=== PATIENT | male | born 1935 | race Caucasian/White ===

== ENCOUNTER 2017-03-12 22:23 | Inpatient (IN) | payer OTHER ==
[2017-03-12 22:30] VITALS: BMI 21.5
--- NOTE | 2017-03-12 22:35 | PDOC ---
History of Present Illness - General Chief Complaint: Injury Stated Complaint: FALL Time Seen by Provider: 03/12/17 22:34 Past History - Past Medical History Allergies/Adverse Reactions: Allergies Allergy/AdvReac Type Severity Reaction Status Date / Time Penicillins Allergy Intermediate Rash Verified 03/12/17 22:25 Home Medications: Ambulatory Orders Aspirin [Ecotrin] 81 mg PO DAILY 01/23/12 Atorvastatin Ca [Lipitor] 10 mg PO DAILY 01/23/12 Folic Acid 1 mg PO DAILY 01/23/12 Lisinopril [Zestril] 2.5 mg PO DAILY 01/23/12 Omeprazole 20 mg PO DAILY 01/23/12 Potassium Chloride [Klor-Con 10] 10 meq PO DAILY 01/23/12 Ranolazine [Ranexa -] 500 mg PO BID 01/23/12 Carvedilol 12.5 mg PO BID #0 10/16/14 Furosemide [Lasix -] 20 mg PO DAILY #0 10/16/14 Anemia: No Asthma: No Cancer: No Cardiac Disorders: Yes (DEFIB/PPM,10/26,2 STENTS AFTER [place]-CARDIAC ARREST--,09/06/08) CVA: No COPD: No CHF: Yes Dementia: No Diabetes: No GI Disorders: No Disorders: No HTN: Yes Hypercholesterolemia: Yes Liver Disease: No Seizures: No Thyroid Disease: No - Surgical History Abdominal Surgery: No Appendectomy: No Cardiac Surgery: Yes (STENTS X2,PACEMAKER/DEFIB) Cholecystectomy: No Lung Surgery: No Neurologic Surgery: No Orthopedic Surgery: No - Immunization History Immunization Up to Date: Yes - Psycho/Social/Smoking Cessation Hx Suicidal Ideation: No Smoking History: Never smoked Have you smoked in the past 12 months: No Hx Alcohol Use: No Drug/Substance Use Hx: No Substance Use Type: None *Physical Exam - Vital Signs Last Vital Signs Temp Pulse Resp BP Pulse Ox 97.9 F 78 18 135/62 98 03/12/17 22:25 03/12/17 22:25 03/12/17 22:25 03/12/17 22:25 03/12/17 22:25
--- NOTE | 2017-03-12 22:46 | PDOC ---
Attending Attestation - HPI HPI: The patient is an 82 yo M with a past medical history significant for cardiac stents, mitral valve repair, ICD, AFIB just out of rehab for subdural hematoma from previous fall who fell twice. The patient states the first time he fell was on the sofa and the second he hit the floor. As per the patients family, the patient has been taking levaquin for a recent cold. Afib on coumadin that was just resumed following a subdural from a previous fall. Spoke with Dr. Wilson who asked us to admit., PCP: Kirt Cruz Cardiology: Dr. Wilson - Physicial Exam PE: GENERAL: Well developed, well nourished. Awake and alert. No acute distress. Conversant. In a wheelchair. HEENT: Normocephalic, atraumatic. PERRLA, EOMI. No conjunctival pallor. Sclera are non- icteric. Moist mucous membranes. Oropharynx is clear. No scalp lacerations or abrasions were noted. No facial trauma. NECK: Supple. Full ROM. No JVD. Carotid pulses 2+ and symmetric, without bruits. No thyromegaly. No lymphadenopathy. CARDIOVASCULAR: AFIB. irregular irregular. No murmurs, rubs, or gallops. Distal pulses are 2+ and symmetric. PULMONARY: No evidence of respiratory distress. Few scattered rhonchi. ABDOMINAL: Soft. Non-tender. Non-distended. No rebound or guarding. No organomegaly. Normoactive bowel sounds. MUSCULOSKELETAL Normal range of motion at all joints. No bony deformities or tenderness. No CVA tenderness. EXTREMITIES: No cyanosis. No clubbing. Chronic bilateral 2+ pitting edema. No calf tenderness. SKIN: Warm and dry. Normal capillary refill. No rashes. No jaundice. NEUROLOGICAL: No gross focal neurological deficits. PSYCHIATRIC: Cooperative. Good eye contact. Appropriate mood and affect. - Medical Decision Making Documentation prepared by Lolita Izquierdo, acting as lpn medical assistant for Jana Ash MD/. Called Dr. Hair @ 1:51 and case was discussed. <Lolita Izquierdo - Last Filed: 03/13/17 01:51> - Resident Resident Name: Rylan Batres - HPI HPI: 03/12/17 22:43 82 yo male brought in by her daughter because he is on coumadin and fell twice today. First time he fell onto the sofa but he fell again tonight onto the floor -recently discharged from rehab after sustaining a subdural hematoma after a previous fell PMH afib,cad PSH cardiac stents,ICD, MV repair cards is Dr Doty primary Kirt Cruz - Physicial Exam PE: 03/13/17 01:55 thin frail appearing 82yo male who has had frequent falls and fell twice today. He is on coumadin and his INR=3.57 throat - coughing up phlegm head no scalp lacerations noted neck no vertebral tenderness lungs scattered rhonchi cvr irregular irregular rhythm extremities no pitting edema neuro alert and conversant - Medical Decision Making 03/13/17 01:[address] Milena Hair . CT SCAN HEAD -no hemorrhage,no skull fracture,no mass,no infarct. diag: on coumadin w head trauma, admit to med.surg <Jana Ash - Last Filed: 03/13/17 02:00>
--- NOTE | 2017-03-12 23:16 | PDOC ---
History of Present Illness - General Chief Complaint: Injury Stated Complaint: FALL Time Seen by Provider: 03/12/17 22:34 - History of Present Illness Initial Comments: 03/12/17 22:51 82 yo M h/o HTN, Prostate Ca., Mitral Valve Repair, CAD, OR, s/p 2 stent placement, and recent fall presents with head trauma. Pt. daughter at bedside to assist in report. States that pt. fell at 2100 attempting ambulation with walker. During descent he hit his left lateral head on coffee table. Denies LOC , RASHID, lightheadedness, N/V, vision changes, neck stiffness/pain, seizure, weakness, numbness/tingling, SOB, chest pain, urinary or GI complaints. Denies laceration or abrasion following fall. Currently on Coumadin for past 2 years. Per daughter pt. fell this AM and landed on couch. Recently dsicharged from rehabilitation following fall that resulted in TBI and treatment at [facility] [place]. Currently on Levaquin ( day 4 of 7 ) for URI. Past History - Past Medical History Allergies/Adverse Reactions: Allergies Allergy/AdvReac Type Severity Reaction Status Date / Time Penicillins Allergy Intermediate Rash Verified 03/12/17 22:25 Home Medications: Ambulatory Orders Aspirin [Ecotrin] 81 mg PO DAILY 01/23/12 Atorvastatin Ca [Lipitor] 10 mg PO DAILY 01/23/12 Folic Acid 1 mg PO DAILY 01/23/12 Lisinopril [Zestril] 2.5 mg PO DAILY 01/23/12 Omeprazole 20 mg PO DAILY 01/23/12 Potassium Chloride [Klor-Con 10] 10 meq PO DAILY 01/23/12 Ranolazine [Ranexa -] 500 mg PO BID 01/23/12 Carvedilol 12.5 mg PO BID #0 10/16/14 Furosemide [Lasix -] 20 mg PO DAILY #0 10/16/14 Anemia: No Asthma: No Cancer: No Cardiac Disorders: Yes (DEFIB/PPM,10/26,2 STENTS AFTER [place]-CARDIAC ARREST--,09/06/08) CVA: No COPD: No CHF: Yes Dementia: No Diabetes: No GI Disorders: No Disorders: No HTN: Yes Hypercholesterolemia: Yes Liver Disease: No Seizures: No Thyroid Disease: No - Surgical History Abdominal Surgery: No Appendectomy: No Cardiac Surgery: Yes (STENTS X2,PACEMAKER/DEFIB) Cholecystectomy: No Lung Surgery: No Neurologic Surgery: No Orthopedic Surgery: No - Immunization History Immunization Up to Date: Yes - Psycho/Social/Smoking Cessation Hx Suicidal Ideation: No Smoking History: Never smoked Have you smoked in the past 12 months: No Hx Alcohol Use: No Drug/Substance Use Hx: No Substance Use Type: None Review of Systems - Review of Systems Comments:: 03/12/17 23:16 GENERAL/CONSTITUTIONAL: No fever or chills. No weakness. HEAD, EYES, EARS, NOSE AND THROAT: No change in vision. No ear pain or discharge. No sore throat. CARDIOVASCULAR: No chest pain or shortness of breath RESPIRATORY: + cough. No wheezing, or hemoptysis. GASTROINTESTINAL: No nausea, vomiting, diarrhea or constipation. GENITOURINARY: No dysuria, frequency, or change in urination. MUSCULOSKELETAL: No joint or muscle swelling or pain. No neck or back pain. SKIN: No rash NEUROLOGIC: No headache, vertigo, loss of consciousness, or change in strength/ sensation. ENDOCRINE: No increased thirst. No abnormal weight change HEMATOLOGIC/LYMPHATIC: No anemia, easy bleeding, or history of blood clots. ALLERGIC/IMMUNOLOGIC: No hives or skin allergy. *Physical Exam - Vital Signs Last Vital Signs Temp Pulse Resp BP Pulse Ox 97.9 F 78 18 135/62 98 03/12/17 22:25 03/12/17 22:25 03/12/17 22:25 03/12/17 22:25 03/12/17 22:25 - Physical Exam Comments: 03/12/17 23:17 GENERAL: Awake, alert, and fully oriented, in no acute distress HEAD: No signs of trauma, normocephalic, atraumatic EYES: PERRLA, EOMI, sclera anicteric, conjunctiva clear ENT: Auricles normal inspection, hearing grossly normal, nares patent, oropharynx clear without exudates. Moist mucosa NECK: Normal ROM, supple, no lymphadenopathy, JVD, or masses LUNGS: + Rales left lobe predominately LLB. No distress, speaks full sentences, clear to auscultation bilaterally HEART: Regular rate and rhythm, normal S1 and S2, no murmurs, rubs or gallops, peripheral pulses normal and equal bilaterally. ABDOMEN: Soft, nontender, normoactive bowel sounds. No guarding, no rebound. No masses EXTREMITIES: Normal inspection, Normal range of motion, no edema. No clubbing or cyanosis. NEUROLOGICAL: Cranial nerves II through XII grossly intact. Normal speech, normal gait, no focal sensorimotor deficits SKIN: Warm, Dry, normal turgor, no rashes or lesions noted. ED Treatment Course - LABORATORY CBC & Chemistry Diagram: 03/14/17 06:00 03/14/17 06:00 Medical Decision Making - Medical Decision Making 03/12/17 23:17 82 yo M with h/o HTN, CAD, OR s/p stent placement x2, Mitral valve repair who presents with head trauma. Denies associated symtpoms. Currently HS. Recovering from recent URI. H/o multiple falls. ED course: Sodium Chloride Inhalation Provided handoff to Dr. Medina *DC/Admit/Observation/Transfer Diagnosis at time of Disposition: Supratherapeutic INR Atrial fibrillation Qualifiers: Atrial fibrillation type: paroxysmal Qualified Code(s): I48.0 - Paroxysmal atrial fibrillation Head trauma Qualifiers: Encounter type: initial encounter Qualified Code(s): S09.90XA - Unspecified injury of head, initial encounter - Discharge Dispostion Condition at time of disposition: Guarded
[2017-03-12] MEDS ORDERED: SODIUM CHLORIDE FOR INHALATION 3 ML VIAL.NEB IH ONE (23:28)
[2017-03-12 23:52] LABS: BASOPHIL 0.4 % (0-2.0); EOSINOPHIL 0.3 % (0-4.5); MCH 28.3 pg (25.7-33.7); MCHC 32.2 g/dl (32.0-35.9); MEAN CELL VOLUME 88.1 fl (80-96); MEAN PLT VOLUME 8.1 fl (7.5-11.1); NEUTROPHILS 77.8 % (42.8-82.8); PLATELET COUNT 181 K/MM3 (134-434); RDW 19.7 % (11.9-15.9); WHITE BLOOD COUNT 6.8 K/mm3 (4.0-10.0)
[2017-03-13 00:04] LABS: INR 3.57 (0.82-1.09); PROTHROMBIN TIME (PATIENT) 40.3 SEC (9.98-11.88)
[2017-03-13 00:31] LABS: ALBUMIN 3.5 g/dl (3.4-5.0); ANION GAP 9 (8-16); BILIRUBIN,TOTAL 0.8 mg/dL (0.2-1.0); CALCIUM 8.4 mg/dL (8.5-10.1); CO2 27 mmol/L (21-32); CREATININE 1.1 mg/dL (0.7-1.3); GLUCOSE,RANDOM 112 mg/dL (74-106); SGOT/AST 37 U/L (15-37); SGPT/ALT 29 U/L (12-78); TOT PROT 6.8 g/dl (6.4-8.2)
[2017-03-13 00:34] LABS: ALK PHOS 94 U/L (45-117); TROPONIN I 0.09 ng/ml (0.00-0.05)
--- NOTE | 2017-03-13 01:45 | PDOC ---
*Physical Exam - Vital Signs Last Vital Signs Temp Pulse Resp BP Pulse Ox 97.9 F 78 18 135/62 98 03/12/17 22:25 03/12/17 22:25 03/12/17 22:25 03/12/17 22:25 03/12/17 22:25 Heart Score/ECG Review #1 ECG reviewed & interpreted by me at: 01:20 A-fib versus A-flutter, rate of 74, with paced rhythm. ED Treatment Course - LABORATORY CBC & Chemistry Diagram: 03/12/17 23:30 03/12/17 23:30 - ADDITIONAL ORDERS Additional order review: Laboratory Results 03/12/17 03/12/17 03/12/17 23:30 23:30 23:30 INR Sodium 134 L Potassium 4.4 Chloride 98 Carbon Dioxide 27 Anion Gap 9 BUN 33 H D Creatinine 1.1 D Creat Clearance w eGFR > 60 Random Glucose 112 H D Calcium 8.4 L Total Bilirubin 0.8 AST 37 ALT 29 Alkaline Phosphatase 94 Creatine Kinase 195 Creatine Kinase Index 2.8 CK-MB (CK-2) 5.472 H CK-MB (CK-2) Rel Index Cancelled Troponin I 0.09 H Total Protein 6.8 Albumin 3.5 Blood Type O POSITIVE Antibody Screen Negative 03/12/17 23:30 INR 3.57 H Sodium Potassium Chloride Carbon Dioxide Anion Gap BUN Creatinine Creat Clearance w eGFR Random Glucose Calcium Total Bilirubin AST ALT Alkaline Phosphatase Creatine Kinase Creatine Kinase Index CK-MB (CK-2) CK-MB (CK-2) Rel Index Troponin I Total Protein Albumin Blood Type Antibody Screen 03/12/17 23:30 RBC 3.84 L MCV 88.1 MCHC 32.2 RDW 19.7 H D MPV 8.1 Neutrophils % 77.8 D Lymphocytes % 9.9 D Monocytes % 11.6 H Eosinophils % 0.3 D Basophils % 0.4 - Medications Given in the ED: ED Medications Discontinued Medications Generic Name Dose Route Start Last Admin Trade Name Freq PRN Reason Stop Dose Admin Sodium Chloride 3 ml 03/12/17 23:28 03/12/17 23:38 Normal Saline For Inhalation - IH 03/12/17 23:29 3 ml ONCE ONE Administration Medical Decision Making - Medical Decision Making Sign-out taken from Dr. Rylan Batres. Pt on Coumadin fell twice today, the second of which resulted in a head hit on coffee table to left lateral aspect. Here in the ED INR is high, EKG shows a-fib vs. a-flutter and ventricular pacing. Also has copious phlegm. 03/13/17 02:[address] without e/o infarct or acute bleed. Dr. Jana Ash spoke with Dr. Hair who graciously admits the patient to Med/ Surg for A-fib, elevated INR, and head trauma. Remainder of Pt's stay in the ED is uncomplicated. *DC/Admit/Observation/Transfer Diagnosis at time of Disposition: Supratherapeutic INR Atrial fibrillation Qualifiers: Atrial fibrillation type: chronic Qualified Code(s): I48.2 - Chronic atrial fibrillation Head trauma Qualifiers: Encounter type: initial encounter Qualified Code(s): S09.90XA - Unspecified injury of head, initial encounter - Discharge Dispostion Condition at time of disposition: Guarded Admit: Yes - Attestations Physician Attestion: 03/13/17 02:04 I, Dr. Rosana Medina, attest that this document has been prepared under my direction and personally reviewed by me in its entirety. I further attest, that it accurately reflects all work, treatment, procedures and medical decision -making performed by me.
--- NOTE | 2017-03-13 08:36 | CON.CARD ---
Consult Consult Specialty:: Cardiology Referred by:: Dr. Hair Reason for Consultation:: Management of Anticoagulation - History of Present Illness Chief Complaint: Falls History of Present Illness: 82 M with pertinent hx of prostate Ca s/p hormonal therapy, CAD s/p PCI 2007, severe MR s/p MV repair ([place] several years ago), ischemic CM s/p ICD, PAF on coumadin with recent admission to [facility] after a fall with head trauma resulting in "fluid on the brain" (presumed SDH). He was taken of coumadin for a period of time and then discharged to rehab. Eventually coumadin was resumed. He was discharged from rehab Sunday and since being home has been having difficulty walking describing severe weakness of both legs. Fell twice yesterday, once onto the couch and a second time on the floor. Advised daughter to bring him to ER. Head CT here negative. He denies CP. + Chronic BARRERA. No palpitations or device discharges. No PND, orthopnea. Denies fever or chills. Has had leg weakness for at least 6 months, but now worse. - History Source History Provided By: Patient, Medical Record Limitations to Obtaining History: No Limitations - Past Medical History Cardio/Vascular: Yes: AFIB, Aortic Insufficiency, CAD, CHF Pulmonary: No: Asthma, Bronchitis, Cancer, COPD, O2 Dependent, Pneumonia, Previously Intubated, Pulmonary Embolus, Pulmonary Fibrosis, Sleep Apnea, Other Gastrointestinal: No: Ascites, Cancer, Constipation, Crohn's Disease, Diverticulitis, Diverticulosis, Esophageal Varices, Gastritis, GERD, GI Bleed, Hemorrhoids, Hiatal Hernia, Inflamatory Bowel Disease, Irritable Bowel Disease, Pancreatitis, Peptic Ulcer Disease, Ulcerative Colitis, Other Hepatobiliary: No: Cirrhosis, Cholelithiasis, Cholecystitis, Choledocholithiasis , Hepatitis A, Hepatitis B, Hepatitis C, Other Heme/Onc: Yes: Other (Prostate CA s/p hormonal Rx) Infectious Disease: No: AIDS, C-Diff, Herpes Zoster, HIV, MRSA, STD's, Tuberculosis, VREF, Other Psych: No: Addictions, Anxiety, Bipolar, Depression, Panic, Psychosis, Schizophrenia, Other Musculoskeletal: No: Bursitis, Chronic low back pain, Hemiparesis, Hemiplegia, Osteoarthritis, Paraplegia, Other Rheumatology: No: Fibromyalgia, Gout, Lupus, Rheumatoid Arthritis, Sarcoidosis, Vasculitis, Other ENT: No: Allergic Rhinitis, Sinusitis, Other - Past Surgical History Past Surgical History: Yes: Valve Replacement (MV repair) - Alcohol/Substance Use Hx Alcohol Use: No - Smoking History Smoking history: Never smoked Have you smoked in the past 12 months: No - Social History Usual Living Arrangement: With Spouse ADL: Family Assistance Occupation: hyster driver History of Recent Travel: No Home Medications - Allergies Allergies/Adverse Reactions: Allergies Allergy/AdvReac Type Severity Reaction Status Date / Time Penicillins Allergy Intermediate Rash Verified 03/12/17 22:25 - Home Medications Home Medications: Ambulatory Orders Aspirin [Ecotrin] 81 mg PO DAILY 01/23/12 Atorvastatin Ca [Lipitor] 10 mg PO DAILY 01/23/12 Folic Acid 1 mg PO DAILY 01/23/12 Lisinopril [Zestril] 2.5 mg PO DAILY 01/23/12 Omeprazole 20 mg PO DAILY 01/23/12 Potassium Chloride [Klor-Con 10] 10 meq PO DAILY 01/23/12 Ranolazine [Ranexa -] 500 mg PO BID 01/23/12 Carvedilol 12.5 mg PO BID #0 10/16/14 Furosemide [Lasix -] 20 mg PO DAILY #0 10/16/14 Family Disease History - Family Disease History Family History: Unremarkable (not pertinent to this presentation) Review of Systems Findings/Remarks: see HPI - Review of Systems Constitutional: reports: Weakness Eyes: reports: No Symptoms HENT: reports: No Symptoms Neck: reports: No Symptoms Cardiovascular: reports: Shortness of Breath (chronic) Respiratory: reports: Exercise Intolerance Gastrointestinal: reports: No Symptoms Genitourinary: reports: No Symptoms Musculoskeletal: reports: Muscle Weakness Neurological: reports: Unsteady Gait, Weakness Endocrine: reports: No Symptoms Hematology/Lymphatic: reports: No Symptoms Psychiatric: reports: No Symptoms - Risk Factors Known Risk Factors: Yes: Other (Known CAD.) Vital Signs: Vital Signs Temperature 98.5 F 03/13/17 06:00 Pulse Rate 71 03/13/17 06:00 Respiratory Rate 20 03/13/17 06:00 Blood Pressure 125/64 03/13/17 06:00 O2 Sat by Pulse Oximetry (%) 98 03/12/17 22:25 Constitutional: Yes: Calm, Anxious Eyes: Yes: Conjunctiva Clear, EOM Intact HENT: Yes: Atraumatic Neck: Yes: Supple Respiratory: Yes: CTA Bilaterally Gastrointestinal: Yes: Soft Cardiovascular: Yes: Regular Rate and Rhythm JVD: No Carotid Bruit: No PMI: Non-Displaced Heart Sounds: Yes: S1, S2 (RRR.) Edema: Yes Edema: LLE: 1+, RLE: 1+ Peripheral Pulses WNL: Yes Neurological: Yes: Alert, Oriented Psychiatric: Yes: WNL - Other Data Labs, Other Data: INR, PTT INR 3.57 (0.82-1.09) H 03/12/17 23:30 Laboratory Tests 03/12/17 03/12/17 03/12/17 23:30 23:30 23:30 WBC 6.8 Hgb 10.9 L Hct 33.8 L Plt Count 181 D INR 3.57 H Sodium 134 L Potassium 4.4 BUN 33 H D Creatinine 1.1 D Creatine Kinase 195 CK-MB (CK-2) 5.472 H Troponin I 0.09 H Artifact. V-pacing at 74 bpm. Underlying rhythm cannot be well differentiated due to artifact. Echo: Other (Recent office echo w/ mild LV dysfxn, Mild MR (MV repair) and moderate to severe AR) Prior Cardiac Procedures: PTCA with Stent, Valve Surgery (MV repair) Ejection Fraction %: LVEF > or = 40 % Imaging - Results Cat Scan: Report Reviewed EKG: Image Reviewed Problem List - Problems (1) Atrial fibrillation Code(s): I48.91 - UNSPECIFIED ATRIAL FIBRILLATION Qualifiers: Atrial fibrillation type: paroxysmal Qualified Code(s): I48.0 - Paroxysmal atrial fibrillation (2) Supratherapeutic INR Code(s): R79.1 - ABNORMAL COAGULATION PROFILE (3) Falls frequently Code(s): R29.6 - REPEATED FALLS (4) Ischemic cardiomyopathy Code(s): I25.5 - ISCHEMIC CARDIOMYOPATHY (5) Paroxysmal a-fib Code(s): I48.0 - PAROXYSMAL ATRIAL FIBRILLATION (6) Prostate CA Code(s): C61 - MALIGNANT NEOPLASM OF PROSTATE (7) Leg weakness, bilateral Code(s): R29.898 - OTH SYMPTOMS AND SIGNS INVOLVING THE MUSCULOSKELETAL SYSTEM Assessment/Plan IMP: Ischemic CM s/p ICD and MV repair several years ago, chronic systolic CHF compensated. PAF on coumadin Frequent falls in setting of progressive b/l LE weakness Prostate CA REC: 1. Hold Coumadin and recommend d/c for future: risks >> benefits. 2. Can resume Ranexa, Coreg, Lipitor and ASA 81mg daily. Would try holding Lisinopril (vasodilator) as it may be contributing to symptoms. -Check orthostatics. 3. Neurology evaluation, will likely need imaging of the L-S spine.
[2017-03-13] MEDS ORDERED: CARVEDILOL 12.5 MG TABLET (FP) PO SCH (10:00)
[2017-03-13] MEDS ORDERED: FOLIC ACID 1 MG TABLET (FP) PO SCH (10:00)
[2017-03-13] MEDS: PANTOPRAZOLE 20 MG TABLET (FP) PO SCH (10:41)
[2017-03-13] MEDS: RANOLAZINE E.R. 500 MG TABLET (FP) PO SCH ×2 (10:41→21:34)
[2017-03-13 10:59] LABS: URINE APPEARANCE CLEAR; URINE BILIRUBIN NEGATIVE (NEGATIVE); URINE BLOOD NEGATIVE (NEGATIVE); URINE COLOR LTYELLOW; URINE GLUCOSE (UA) NEGATIVE (NEGATIVE); URINE KETONE NEGATIVE (NEGATIVE); URINE LEUK ESTERASE NEGATIVE (NEGATIVE); URINE NITRITE NEGATIVE (NEGATIVE); URINE PROTEIN NEGATIVE (NEGATIVE); URINE UROBILINOGEN NEGATIVE mg/dL (0.2-1.0)
--- NOTE | 2017-03-13 15:14 | EKG ---
Test Reason : Blood Pressure : / mmHG Vent. Rate : 074 BPM Atrial Rate : 375 BPM P-R Int : 000 ms QRS Dur : 110 ms QT Int : 454 ms P-R-T Axes : 018 131 043 degrees QTc Int : 503 ms POOR DATA QUALITY, INTERPRETATION MAY BE ADVERSELY AFFECTED UNDERLINE RHYTHM APPEARS TO BE ATRIAL FLUTTER PROBABLE AV SEQUENTIAL PACEMAKER IS SENSING AND PACING APPROPRIATELY IN VENTRICULAR MODE.. OCCASIONAL SINGLE VPBs UNDERLINE RHYTHM APPEARS TO BE ATRIAL FLUTTER ABNORMAL ECG NO PREVIOUS ECGS AVAILABLE REPEAT TRACING INDICATED Confirmed by HUONG MATTHEWS MD ([id number]) on 03/13/2017 3:13:59 PM Referred By: Confirmed By:HUONG MATTHEWS MD
--- NOTE | 2017-03-13 16:54 | HP ---
Admitting History and Physical - Past Medical History Cardiovascular: Yes: AFIB, Aortic Insufficiency, CAD, CHF Pulmonary: No: Asthma, Bronchitis, Cancer, COPD, O2 Dependent, Pneumonia, Previously Intubated, Pulmonary Embolus, Pulmonary Fibrosis, Sleep Apnea, Other Gastrointestinal: No: Ascites, Cancer, Constipation, Crohn's Disease, Diverticulitis, Diverticulosis, Esophageal Varices, Gastritis, GERD, GI Bleed, Hemorrhoids, Hiatal Hernia, Inflamatory Bowel Disease, Irritable Bowel Disease, Pancreatitis, Peptic Ulcer Disease, Ulcerative Colitis, Other Hepatobiliary: No: Cirrhosis, Cholelithiasis, Cholecystitis, Choledocholithiasis , Hepatitis A, Hepatitis B, Hepatitis C, Other Renal/: No: Renal Failure, Renal Inusuff, BPH, Cancer, Hematuria, Hemodialysis , Neurogenic Bladder, Renal Calculi, UTI, Other Heme/Onc: Yes: Other (Prostate CA s/p hormonal Rx) Infectious Disease: No: AIDS, C-Diff, Herpes Zoster, HIV, MRSA, STD's, Tuberculosis, VREF, Other Psych: No: Addictions, Anxiety, Bipolar, Depression, Panic, Psychosis, Schizophrenia, Other Musculoskeletal: No: Bursitis, Chronic low back pain, Hemiparesis, Hemiplegia, Osteoarthritis, Paraplegia, Other Rheumatology: No: Fibromyalgia, Gout, Lupus, Rheumatoid Arthritis, Sarcoidosis, Vasculitis, Other ENT: No: Allergic Rhinitis, Sinusitis, Other - Past Surgical History Past Surgical History: Yes: Valve Replacement (MV repair) - Smoking History Smoking history: Never smoked Have you smoked in the past 12 months: No - Alcohol/Substance Use Hx Alcohol Use: No - Social History ADL: Family Assistance Occupation: otr owner operator truck driver History of Recent Travel: No Home Medications - Allergies Allergies/Adverse Reactions: Allergies Allergy/AdvReac Type Severity Reaction Status Date / Time Penicillins Allergy Intermediate Rash Verified 03/12/17 22:25 - Home Medications Home Medications: Ambulatory Orders Aspirin [Ecotrin] 81 mg PO DAILY 01/23/12 Atorvastatin Ca [Lipitor] 10 mg PO DAILY 01/23/12 Folic Acid 1 mg PO DAILY 01/23/12 Lisinopril [Zestril] 2.5 mg PO DAILY 01/23/12 Omeprazole 20 mg PO DAILY 01/23/12 Potassium Chloride [Klor-Con 10] 10 meq PO DAILY 01/23/12 Ranolazine [Ranexa -] 500 mg PO BID 01/23/12 Carvedilol 12.5 mg PO BID #0 10/16/14 Furosemide [Lasix -] 20 mg PO DAILY #0 10/16/14 Physical Examination Vital Signs: Vital Signs Temperature 98.5 F 03/13/17 15:19 Pulse Rate 70 03/13/17 15:19 Respiratory Rate 18 03/13/17 15:19 Blood Pressure 109/55 03/13/17 15:19 O2 Sat by Pulse Oximetry (%) 98 03/12/17 22:25
[2017-03-13] MEDS ORDERED: ASPIRIN COATED 81 MG TABLET.EC PO SCH (17:00)
[2017-03-13] MEDS: ATORVASTATIN CA 10 MG TABLET (FP) PO SCH (21:34)
[2017-03-13] MEDS: CARVEDILOL 12.5 MG TABLET (FP) PO SCH (21:34)
[2017-03-13] MEDS ORDERED: RANOLAZINE E.R. 500 MG TABLET (FP) PO SCH (22:00)
[2017-03-13] MEDS: DOCUSATE SODIUM 100 MG CAPSULE (FP) PO PRN (22:01)
[2017-03-14] MEDS: LEVOFLOXACIN 500 MG TABLET (FP) PO SCH (06:15)
[2017-03-14 07:17] LABS: BASOPHIL 0.7 % (0-2.0); EOSINOPHIL 1.5 % (0-4.5); MCH 29.3 pg (25.7-33.7); MCHC 33.1 g/dl (32.0-35.9); MEAN CELL VOLUME 88.4 fl (80-96); NEUTROPHILS 64.5 % (42.8-82.8); PLATELET COUNT 162 K/MM3 (134-434); RDW 19.8 % (11.9-15.9); WHITE BLOOD COUNT 5.8 K/mm3 (4.0-10.0)
[2017-03-14 07:30] LABS: INR 3.18 (0.82-1.09); PROTHROMBIN TIME (PATIENT) 35.8 SEC (9.98-11.88)
[2017-03-14 07:49] LABS: ANION GAP 8 (8-16); CALCIUM 8.4 mg/dL (8.5-10.1); CO2 29 mmol/L (21-32); CREATININE 0.9 mg/dL (0.7-1.3); GLUCOSE,RANDOM 118 mg/dL (74-106)
--- NOTE | 2017-03-14 08:45 | PN ---
Progress Note, Physician Chief Complaint: no distress - Current Medication List Current Medications: Active Medications Albuterol/Ipratropium (Duoneb -) 1 amp NEB Q6H PRN PRN Reason: SHORTNESS OF BREATH Last Admin: 03/14/17 00:00 Dose: 1 amp Aspirin (Asa -) 81 mg PO DAILY [facility] Atorvastatin Calcium (Lipitor -) 10 mg PO HS [facility] Last Admin: 03/13/17 21:34 Dose: 10 mg Carvedilol (Coreg -) 12.5 mg PO BID [facility] Last Admin: 03/13/17 21:34 Dose: 12.5 mg Docusate Sodium (Colace -) 100 mg PO Q8H PRN PRN Reason: CONSTIPATION Last Admin: 03/13/17 22:01 Dose: 100 mg Folic Acid (Folic Acid -) 1 mg PO DAILY [facility] Furosemide (Lasix -) 20 mg PO DAILY [facility] Levofloxacin (Levaquin -) 500 mg PO DAILY@0600 [facility] Last Admin: 03/14/17 06:15 Dose: 500 mg Pantoprazole Sodium (Protonix -) 20 mg PO DAILY [facility] Last Admin: 03/13/17 10:41 Dose: 20 mg Potassium Chloride (K-Dur -) 10 meq PO DAILY [facility] Ranolazine (Ranexa -) 500 mg PO BID [facility] Last Admin: 03/13/17 21:34 Dose: 500 mg - Objective Vital Signs: Vital Signs Temperature 98 F 03/14/17 07:47 Pulse Rate 72 03/14/17 07:47 Respiratory Rate 20 03/14/17 07:47 Blood Pressure 118/62 03/14/17 07:47 O2 Sat by Pulse Oximetry (%) 98 03/12/17 22:25 Constitutional: Yes: No Distress Cardiovascular: Yes: Regular Rate and Rhythm Respiratory: Yes: CTA Bilaterally Gastrointestinal: Yes: Soft Edema: No Neurological: Yes: Alert, Oriented Labs: CBC, BMP 03/14/17 06:00 03/14/17 06:00 INR, PTT INR 3.18 (0.82-1.09) H 03/14/17 06:00 Laboratory Tests 03/14/17 03/14/17 03/14/17 06:00 06:00 06:00 WBC 5.8 Hgb 11.2 L Plt Count 162 INR 3.18 H BUN 24 H D Creatinine 0.9 Prostate Specific Ag 03/14/17 06:00 WBC Hgb Plt Count INR BUN Creatinine Prostate Specific Ag Pending Problem List - Problems (1) Atrial fibrillation Code(s): I48.91 - UNSPECIFIED ATRIAL FIBRILLATION Qualifiers: Atrial fibrillation type: paroxysmal Qualified Code(s): I48.0 - Paroxysmal atrial fibrillation (2) Supratherapeutic INR Code(s): R79.1 - ABNORMAL COAGULATION PROFILE (3) Falls frequently Code(s): R29.6 - REPEATED FALLS (4) Ischemic cardiomyopathy Code(s): I25.5 - ISCHEMIC CARDIOMYOPATHY (5) Paroxysmal a-fib Code(s): I48.0 - PAROXYSMAL ATRIAL FIBRILLATION (6) Prostate CA Code(s): C61 - MALIGNANT NEOPLASM OF PROSTATE (7) Leg weakness, bilateral Code(s): R29.898 - [facility] SYMPTOMS AND SIGNS INVOLVING THE MUSCULOSKELETAL SYSTEM Assessment/Plan IMP: Ischemic CM s/p ICD and MV repair several years ago, chronic systolic CHF compensated. PAF on coumadin Frequent falls in setting of progressive b/l LE weakness Prostate CA REC: 1. Hold Coumadin and recommend d/c for future: risks >> benefits. 2. Can resume Ranexa, Coreg, Lipitor and ASA 81mg daily. Hold Lisinopril ( vasodilator) as it may be contributing to symptoms. -Check orthostatics. 3. Neurology evaluation for progressive LE weakness, will likely need imaging of the L-S spine.
[2017-03-14] MEDS ORDERED: ATORVASTATIN CA 10 MG TABLET (FP) PO SCH (10:00)
[2017-03-14] MEDS ORDERED: PATIENT'S OWN MEDICATION (NON-FORMULARY) (Lisinopril [Zestril] 2.5 MG) PO SCH (10:00)
[2017-03-14] MEDS ORDERED: PANTOPRAZOLE 20 MG TABLET (FP) PO SCH (10:00)
[2017-03-14] MEDS ORDERED: PT OWN MED DRAWER 7, Y5N ONE (10:10)
[2017-03-14] MEDS: FUROSEMIDE 20 MG TABLET (FP) PO SCH (10:13)
[2017-03-14] MEDS: RANOLAZINE E.R. 500 MG TABLET (FP) PO SCH ×2 (10:13→21:17)
[2017-03-14] MEDS: PANTOPRAZOLE 20 MG TABLET (FP) PO SCH (10:13)
[2017-03-14] MEDS: FOLIC ACID 1 MG TABLET (FP) PO SCH (10:13)
[2017-03-14] MEDS: POTASSIUM CHLORIDE TABS 10 MEQ TABLET.ER (FP) PO SCH (10:13)
[2017-03-14] MEDS: ASPIRIN 81 MG CHEWABLE TABLETS PO SCH (10:13)
[2017-03-14] MEDS: CARVEDILOL 12.5 MG TABLET (FP) PO SCH ×2 (10:13→21:17)
[2017-03-14] MEDS: ALBUTEROL SO4 2.5/IPRATROPIUM 0.5 INH SOL 3 ML VIAL.NEB. NEB PRN ×3 (12:48→20:09)
--- NOTE | 2017-03-14 16:37 | PN ---
Progress Note, Physician - Current Medication List Current Medications: Active Medications Albuterol/Ipratropium (Duoneb -) 1 amp NEB Q6H PRN PRN Reason: SHORTNESS OF BREATH Last Admin: 03/14/17 12:48 Dose: 1 amp Aspirin (Asa -) 81 mg PO DAILY [facility] Last Admin: 03/14/17 10:13 Dose: 81 mg Atorvastatin Calcium (Lipitor -) 10 mg PO HS [facility] Last Admin: 03/13/17 21:34 Dose: 10 mg Carvedilol (Coreg -) 12.5 mg PO BID [facility] Last Admin: 03/14/17 10:13 Dose: 12.5 mg Docusate Sodium (Colace -) 100 mg PO Q8H PRN PRN Reason: CONSTIPATION Last Admin: 03/13/17 22:01 Dose: 100 mg Folic Acid (Folic Acid -) 1 mg PO DAILY [facility] Last Admin: 03/14/17 10:13 Dose: 1 mg Furosemide (Lasix -) 20 mg PO DAILY [facility] Last Admin: 03/14/17 10:13 Dose: 20 mg Levofloxacin (Levaquin -) 500 mg PO DAILY@0600 [facility] Last Admin: 03/14/17 06:15 Dose: 500 mg Pantoprazole Sodium (Protonix -) 20 mg PO DAILY [facility] Last Admin: 03/14/17 10:13 Dose: 20 mg Potassium Chloride (K-Dur -) 10 meq PO DAILY [facility] Last Admin: 03/14/17 10:13 Dose: 10 meq Ranolazine (Ranexa -) 500 mg PO BID [facility] Last Admin: 03/14/17 10:13 Dose: 500 mg - Objective Vital Signs: Vital Signs Temperature 97.9 F 03/14/17 15:38 Pulse Rate 70 03/14/17 15:38 Respiratory Rate 18 03/14/17 15:38 Blood Pressure 106/52 03/14/17 15:33 O2 Sat by Pulse Oximetry (%) 98 03/12/17 22:25 Labs: CBC, BMP 03/14/17 06:00 03/14/17 06:00 INR, PTT INR 3.18 (0.82-1.09) H 03/14/17 06:00
--- NOTE | 2017-03-14 16:46 | CONSULT ---
Consultation: REQUESTING PROVIDER: CONSULT REQUEST: We have been asked to medically evaluate this patient for lower ext. weakness. HISTORY OF PRESENT ILLNESS: 82 yo M with significant PMHx. of prostate ca s/p hormonal treatment, CAD(s/p stents x4), CM s/p ICD, Severe MR s/p valve repair and PAF on coumadin admitted after sustaining fall at home. He states that appox 2 mo ago he fell at home and sustained a head injury and IC bleed. He was in [facility] for 7 days and then rehab at [facility] over the next 8 weeks. He returned home last Sunday and on sunday was getting up to show his something when he sustained another fall and hit his head. CT imaging has been negative for fracture or acute IC bleed. Neurology has been consulted for his lower ext weakness. He states that he has been dealing with this weakness for several years and had been doing much better at rehab but after a few days at home again felt weak and difficulty standing from a chair. He denies any pain in his lower ext. or back but does have increase swelling of bilateral lower ext. His states that as recently as last week he was able to ambulate 3 blocks with walker with minimal problems. He denies CP, RASHID, abd.pain, N/V or recent illness. PMHx: CAD, prostate ca, Ischemic CM. REVIEW OF SYSTEMS: CONSTITUTIONAL: Absent: fever, chills, diaphoresis, generalized weakness, malaise, loss of appetite, weight change HEENT: Absent: rhinorrhea, nasal congestion, throat pain, throat swelling, difficulty swallowing, mouth swelling, ear pain, eye pain, visual changes CARDIOVASCULAR: Absent: chest pain, syncope, palpitations, irregular heart rate, lightheadedness , peripheral edema RESPIRATORY: dyspnea with exertion Absent: cough, shortness of breath, , orthopnea, wheezing, stridor, hemoptysis GASTROINTESTINAL: Absent: abdominal pain, abdominal distension, nausea, vomiting, diarrhea, constipation, melena, hematochezia GENITOURINARY: Absent: dysuria, frequency, urgency, hesitancy, hematuria, flank pain, genital pain MUSCULOSKELETAL: Absent: myalgia, arthralgia, joint swelling, back pain, neck pain SKIN: Absent: rash, itching, pallor HEMATOLOGIC/IMMUNOLOGIC: Absent: easy bleeding, easy bruising, lymphadenopathy, frequent infections ENDOCRINE: Absent: unexplained weight gain, unexplained weight loss, heat intolerance, cold intolerance NEUROLOGIC: unsteady gait Absent: headache, focal weakness or paresthesias, dizziness, , seizure, mental status changes, bladder or bowel incontinence PSYCHIATRIC: Absent: anxiety, depression, suicidal or homicidal ideation, hallucinations. PHYSICAL EXAMINATION Vital Signs - 24 hr 03/13/17 03/13/17 03/13/17 18:00 21:00 23:34 Temperature 98.7 F 98.4 F Pulse Rate 74 72 Respiratory 18 18 18 Rate Blood Pressure 125/67 118/56 03/14/17 03/14/17 03/14/17 07:47 08:59 15:33 Temperature 98 F 98.1 F Pulse Rate 72 70 Respiratory 20 18 Rate Blood Pressure 118/62 115/61 106/52 03/14/17 15:38 Temperature 97.9 F Pulse Rate 70 Respiratory 18 Rate Blood Pressure GENERAL: Awake, alert, and fully oriented, in no acute distress. HEAD: Normal with no signs of trauma. EYES: Pupils equal, round and reactive to light, extraocular movements intact, sclera anicteric, conjunctiva clear. No lid lag. EARS, NOSE, THROAT: Ears normal, nares patent, oropharynx clear without exudates. Moist mucous membranes. NECK: Normal range of motion, supple without lymphadenopathy, JVD, or masses. LUNGS: Breath sounds equal, clear to auscultation bilaterally. No wheezes, and no crackles. No accessory muscle use. HEART: Regular rate and rhythm, normal S1 and S2 without murmur, rub or gallop. ABDOMEN: Soft, nontender, not distended, normoactive bowel sounds, no guarding, no rebound, no masses. No hepatomegaly or splenomegaly. MUSCULOSKELETAL: Normal range of motion at all joints. No bony deformities or tenderness. No CVA tenderness. UPPER EXTREMITIES: 2+ pulses, warm, well-perfused. No cyanosis. No clubbing. Cap refill <2 seconds. No peripheral edema. LOWER EXTREMITIES: 2+ pulses, warm, well-perfused. No calf tenderness. No peripheral edema. NEUROLOGICAL: Cranial nerves II-XII intact. Normal speech. 5/5 R upper and lower ext. 2/5 L upper and 4/5 L lower ext. 2+ DTR. shuffling unsteady gait. romberg + PSYCHIATRIC: Cooperative. Good eye contact. Appropriate mood and affect. SKIN: Warm, dry, normal turgor, no rashes or lesions noted. Laboratory Results - last 24 hr 03/14/17 03/14/17 03/14/17 06:00 06:00 06:00 WBC 5.8 RBC 3.83 L Hgb 11.2 L Hct 33.9 L MCV 88.4 MCH 29.3 MCHC 33.1 RDW 19.8 H Plt Count 162 MPV 8.0 Neutrophils % 64.5 Lymphocytes % 22.0 D Monocytes % 11.3 H Eosinophils % 1.5 D Basophils % 0.7 INR 3.18 H Sodium 135 L Potassium 4.3 Chloride 98 Carbon Dioxide 29 Anion Gap 8 BUN 24 H D Creatinine 0.9 Random Glucose 118 H Calcium 8.4 L Active Medications Generic Name Dose Route Start Last Admin Trade Name Freq PRN Reason Stop Dose Admin Albuterol/Ipratropium 1 amp 03/13/17 22:16 03/14/17 12:48 Duoneb - NEB 1 amp Q6H PRN Administration SHORTNESS OF BREATH Aspirin 81 mg 03/14/17 10:00 03/14/17 10:13 Asa - PO 81 mg DAILY [facility] Administration Atorvastatin Calcium 10 mg 03/13/17 22:00 03/13/17 21:34 Lipitor - PO 10 mg HS [facility] Administration Carvedilol 12.5 mg 03/13/17 22:00 03/14/17 10:13 Coreg - PO 12.5 mg BID [facility] Administration Docusate Sodium 100 mg 03/13/17 08:58 03/13/17 22:01 Colace - PO 100 mg Q8H PRN Administration CONSTIPATION Folic Acid 1 mg 03/14/17 10:00 03/14/17 10:13 Folic Acid - PO 1 mg DAILY [facility] Administration Furosemide 20 mg 03/14/17 10:00 03/14/17 10:13 Lasix - PO 20 mg DAILY [facility] Administration Levofloxacin 500 mg 03/14/17 06:00 03/14/17 06:15 Levaquin - PO 500 mg DAILY@0600 [facility] Administration Pantoprazole Sodium 20 mg 03/13/17 10:00 03/14/17 10:13 Protonix - PO 20 mg DAILY [facility] Administration Potassium Chloride 10 meq 03/14/17 10:00 03/14/17 10:13 K-Dur - PO 10 meq DAILY [facility] Administration Ranolazine 500 mg 03/13/17 10:00 03/14/17 10:13 Ranexa - PO 500 mg BID [facility] Administration ASSESSMENT/PLAN: 82 yo M with significant PMHx. of prostate ca s/p hormonal treatment, CAD(s/p stents x4), CM s/p ICD, Severe MR s/p valve repair and PAF on coumadin admitted after sustaining fall at home. Dispo: We will continue to follow the patient. Thank you for this consultative opportunity. Problem List - Problems (1) Cervical radiculopathy Assessment/Plan: * Most likely left C5 or C6 radiculopathy * Will obtain MRI of C-spine * PT eval. * Neuro follow up as outpatient. Visit type - Emergency Visit Emergency Visit: Yes ED Registration Date: 03/13/17 Care time: The patient presented to the Emergency Department on the above date and was hospitalized for further evaluation of their emergent condition. - New Patient This patient is new to me today: Yes Date on this admission: 03/15/17 - Critical Care Critical Care patient: No
--- NOTE | 2017-03-14 19:26 | CONSULT ---
Consult - text type - Consultation Consultation Note: NEUROLOGY CONSULTATION is greatly appreciated: This 82 yo RH div man lives with his daughter. Retired coach driver with h/o HTN , Chol, ASHD, s/p stents x 2 and cardiac arrest in 2007 [place] [place] AFib. S/P MVR. Maintatined on Ranexa, carvedilol, atorvastatin, lisinopril, lasix, KCl, omeprazole and ASA (was on coumadin but D/C'ed due to recent SDH and recurrent falls. Patient describes a 6 mo history of progressive gait deterioration and falls. Has walker at home. Recently hospitalized for SDH and went to rehab. However, falling (usually backwards) resumed one home. Pt c/o numbness in the right leg and left shoulder weakness. Chronic neck pain. "Heaviness in legs." SAVANAH: No bruits. Normal passive ROM Left shoulder. - SLR. Decreased neck ROM. NEURO: MS/Speech: Normal CN II-XII normal without nystagmus. Motor: No drift. No tremor. Min cogwheeling R>L. Severe weakness left shoulder abduction (2/5) and moderate weakness of the Left biceps (4-/%). Otherwise normal strength. Brisk reflexes except sl decreased L BJ. Plantars are equivocal. Coord: NO FTN Dystaxia Sensory: Decreased vibration both legs to the knees !! Romberg ++ Gait: Flexed. shuffling, unsteady. IMP: 1. Cervical Myelopathy 2. Left C5 (and/or C6) radiculopathy 3. Extrapyramidal features (R>L). Suggestions: MRI of cervical spine (C-) B12 Sinemet CR 25/100 PO TID with meals. PT for gait with walker. Neuro f/u as out patient. Thank you very much, Wellington Cruz MD
[2017-03-14] MEDS: DOCUSATE SODIUM 100 MG CAPSULE (FP) PO PRN (21:17)
[2017-03-14] MEDS: ATORVASTATIN CA 10 MG TABLET (FP) PO SCH (21:17)
[2017-03-15] MEDS: LEVOFLOXACIN 500 MG TABLET (FP) PO SCH (05:54)
[2017-03-15] MEDS: DOCUSATE SODIUM 100 MG CAPSULE (FP) PO PRN (05:56)
[2017-03-15] MEDS ORDERED: SENNOSIDES 8.6MG TABLET (FP) PO PRN (08:51)
--- NOTE | 2017-03-15 08:54 | PN ---
Progress Note, Physician Chief Complaint: c/o cough at night Seen by Neuro, consult appreciated Wants his senna and colace adjusted - Current Medication List Current Medications: Active Medications Albuterol/Ipratropium (Duoneb -) 1 amp NEB Q6H PRN PRN Reason: SHORTNESS OF BREATH Last Admin: 03/14/17 20:09 Dose: 1 amp Aspirin (Asa -) 81 mg PO DAILY [facility] Last Admin: 03/14/17 10:13 Dose: 81 mg Atorvastatin Calcium (Lipitor -) 10 mg PO HS [facility] Last Admin: 03/14/17 21:17 Dose: 10 mg Carbidopa/Levodopa (Sinemet *Cr* 25/100 -) 1 combo PO TIDCM [facility] Stop: 03/16/17 17:31 Last Admin: 03/15/17 08:34 Dose: 1 combo Carbidopa/Levodopa (Sinemet *Cr* 25/100 -) 1 combo PO TID@0700,1200,1700 [facility] Carvedilol (Coreg -) 12.5 mg PO BID [facility] Last Admin: 03/14/17 21:17 Dose: 12.5 mg Docusate Sodium (Colace -) 200 mg PO DAILY [facility] Folic Acid (Folic Acid -) 1 mg PO DAILY [facility] Last Admin: 03/14/17 10:13 Dose: 1 mg Furosemide (Lasix -) 20 mg PO DAILY [facility] Last Admin: 03/14/17 10:13 Dose: 20 mg Guaifenesin/Codeine Phosphate (Robitussin Ac -) 10 ml PO HS [facility] Levofloxacin (Levaquin -) 500 mg PO DAILY@0600 [facility] Last Admin: 03/15/17 05:54 Dose: 500 mg Pantoprazole Sodium (Protonix -) 20 mg PO DAILY [facility] Last Admin: 03/14/17 10:13 Dose: 20 mg Potassium Chloride (K-Dur -) 10 meq PO DAILY [facility] Last Admin: 03/14/17 10:13 Dose: 10 meq Ranolazine (Ranexa -) 500 mg PO BID [facility] Last Admin: 03/14/17 21:17 Dose: 500 mg Senna (Senna -) 2 tab PO HS PRN PRN Reason: CONSTIPATION - Objective Vital Signs: Vital Signs Temperature 98.8 F 03/15/17 06:38 Pulse Rate 75 03/15/17 06:38 Respiratory Rate 20 03/15/17 06:38 Blood Pressure 112/54 03/15/17 06:38 O2 Sat by Pulse Oximetry (%) 98 03/12/17 22:25 Constitutional: Yes: No Distress Eyes: Yes: Conjunctiva Clear Cardiovascular: Yes: Regular Rate and Rhythm Respiratory: Yes: Regular, CTA Bilaterally Gastrointestinal: Yes: Soft Edema: Yes Edema: LLE: 1+, RLE: 1+ Neurological: Yes: Alert, Oriented Labs: CBC, BMP 03/14/17 06:00 03/14/17 06:00 INR, PTT INR 3.18 (0.82-1.09) H 03/14/17 06:00 Problem List - Problems (1) Atrial fibrillation Code(s): I48.91 - UNSPECIFIED ATRIAL FIBRILLATION Qualifiers: Atrial fibrillation type: paroxysmal Qualified Code(s): I48.0 - Paroxysmal atrial fibrillation (2) Supratherapeutic INR Code(s): R79.1 - ABNORMAL COAGULATION PROFILE (3) Falls frequently Code(s): R29.6 - REPEATED FALLS (4) Ischemic cardiomyopathy Code(s): I25.5 - ISCHEMIC CARDIOMYOPATHY (5) Paroxysmal a-fib Code(s): I48.0 - PAROXYSMAL ATRIAL FIBRILLATION (6) Prostate CA Code(s): C61 - MALIGNANT NEOPLASM OF PROSTATE (7) Leg weakness, bilateral Code(s): R29.898 - OTH SYMPTOMS AND SIGNS INVOLVING THE MUSCULOSKELETAL SYSTEM Assessment/Plan IMP: Ischemic CM s/p ICD and MV repair several years ago, chronic systolic CHF compensated. PAF on coumadin Frequent falls in setting of progressive b/l LE weakness Prostate CA REC: 1. Hold Coumadin and recommend d/c for future: risks >> benefits. 2. Can resume Ranexa, Coreg, Lipitor and ASA 81mg daily. Holding Lisinopril ( vasodilator) as it may be contributing to symptoms. He complains of light headedness when standing and at rehab BP was running very low as per daughter ( 80-90 systolic) 3. Neurology evaluation for progressive LE weakness in progress. Radiology to determine if ICD is MRI compatible.
[2017-03-15] MEDS: PANTOPRAZOLE 20 MG TABLET (FP) PO SCH (09:26)
[2017-03-15] MEDS: FUROSEMIDE 20 MG TABLET (FP) PO SCH (09:26)
[2017-03-15] MEDS: ASPIRIN 81 MG CHEWABLE TABLETS PO SCH (09:26)
[2017-03-15] MEDS: FOLIC ACID 1 MG TABLET (FP) PO SCH (09:27)
[2017-03-15] MEDS: POTASSIUM CHLORIDE TABS 10 MEQ TABLET.ER (FP) PO SCH (09:27)
[2017-03-15] MEDS: CARVEDILOL 12.5 MG TABLET (FP) PO SCH ×2 (09:27→21:11)
[2017-03-15] MEDS: RANOLAZINE E.R. 500 MG TABLET (FP) PO SCH ×2 (09:27→21:11)
[2017-03-15] MEDS ORDERED: PT OWN MED DRAWER 7, Y5N ONE ×2 (12:28→17:50)
[2017-03-15] MEDS: ALBUTEROL SO4 2.5/IPRATROPIUM 0.5 INH SOL 3 ML VIAL.NEB. NEB PRN ×2 (12:42→21:18)
[2017-03-15] MEDS: guaiFENesin 200 MG/10 ML 10 ML UNIT-DOSE CUPS PO PRN (16:07)
[2017-03-15] MEDS: BACITRACIN 15 GM TUBE TOPICAL OINTMENT TP SCH (16:07)
[2017-03-15] MEDS: DOCUSATE SODIUM 100 MG CAPSULE (FP) PO SCH (20:24)
[2017-03-15] MEDS: ATORVASTATIN CA 10 MG TABLET (FP) PO SCH (21:11)
[2017-03-15] MEDS: guaiFENesin/CODEINE 10 ML UNIT-DOSE CUPS PO SCH (21:11)
--- NOTE | 2017-03-15 22:30 | PN ---
Progress Note, Physician - Current Medication List Current Medications: Active Medications Albuterol/Ipratropium (Duoneb -) 1 amp NEB Q6H PRN PRN Reason: SHORTNESS OF BREATH Last Admin: 03/15/17 21:18 Dose: 1 amp Aspirin (Asa -) 81 mg PO DAILY [facility] Last Admin: 03/15/17 09:26 Dose: 81 mg Atorvastatin Calcium (Lipitor -) 10 mg PO HS [facility] Last Admin: 03/15/17 21:11 Dose: 10 mg Bacitracin (Bacitracin -) 1 applic TP DAILY [facility] Last Admin: 03/15/17 16:07 Dose: 1 applic Carbidopa/Levodopa (Sinemet *Cr* 25/100 -) 1 combo PO TIDCM [facility] Stop: 03/16/17 17:31 Last Admin: 03/15/17 17:55 Dose: 1 combo Carbidopa/Levodopa (Sinemet *Cr* 25/100 -) 1 combo PO TID@0700,1200,1700 [facility] Carvedilol (Coreg -) 12.5 mg PO BID [facility] Last Admin: 03/15/17 21:11 Dose: 12.5 mg Docusate Sodium (Colace -) 200 mg PO DAILY [facility] Last Admin: 03/15/17 20:24 Dose: 200 mg Folic Acid (Folic Acid -) 1 mg PO DAILY [facility] Last Admin: 03/15/17 09:27 Dose: 1 mg Furosemide (Lasix -) 20 mg PO DAILY [facility] Last Admin: 03/15/17 09:26 Dose: 20 mg Guaifenesin (Robitussin -) 5 ml PO Q6H PRN PRN Reason: COUGH Last Admin: 03/15/17 16:07 Dose: 5 ml Guaifenesin/Codeine Phosphate (Robitussin Ac -) 10 ml PO HS [facility] Last Admin: 03/15/17 21:11 Dose: 10 ml Levofloxacin (Levaquin -) 500 mg PO DAILY@0600 [facility] Last Admin: 03/15/17 05:54 Dose: 500 mg Pantoprazole Sodium (Protonix -) 20 mg PO DAILY [facility] Last Admin: 03/15/17 09:26 Dose: 20 mg Potassium Chloride (K-Dur -) 10 meq PO DAILY [facility] Last Admin: 03/15/17 09:27 Dose: 10 meq Ranolazine (Ranexa -) 500 mg PO BID [facility] Last Admin: 03/15/17 21:11 Dose: 500 mg Senna (Senna -) 2 tab PO HS PRN PRN Reason: CONSTIPATION - Objective Vital Signs: Vital Signs Temperature 98.1 F 03/15/17 18:00 Pulse Rate 92 H 03/15/17 18:00 Respiratory Rate 18 03/15/17 18:00 Blood Pressure 118/69 03/15/17 18:00 O2 Sat by Pulse Oximetry (%) 98 03/12/17 22:25 Labs: CBC, BMP 03/14/17 06:00 03/14/17 06:00 INR, PTT INR 3.18 (0.82-1.09) H 03/14/17 06:00
[2017-03-16] MEDS: LEVOFLOXACIN 500 MG TABLET (FP) PO SCH (05:41)
[2017-03-16] MEDS: ALBUTEROL SO4 2.5/IPRATROPIUM 0.5 INH SOL 3 ML VIAL.NEB. NEB PRN ×2 (07:59→17:21)
[2017-03-16] MEDS ORDERED: PT OWN MED DRAWER 7, Y5N ONE ×3 (08:35→17:48)
--- NOTE | 2017-03-16 08:59 | PN ---
Progress Note, Physician Chief Complaint: CXR ok C/o orthopnea Difficulty laying flat and dry cough minimally improved w/ Robitussin - Current Medication List Current Medications: Active Medications Albuterol/Ipratropium (Duoneb -) 1 amp NEB Q6H PRN PRN Reason: SHORTNESS OF BREATH Last Admin: 03/16/17 07:59 Dose: 1 amp Aspirin (Asa -) 81 mg PO DAILY [facility] Last Admin: 03/15/17 09:26 Dose: 81 mg Atorvastatin Calcium (Lipitor -) 10 mg PO HS [facility] Last Admin: 03/15/17 21:11 Dose: 10 mg Bacitracin (Bacitracin -) 1 applic TP DAILY [facility] Last Admin: 03/15/17 16:07 Dose: 1 applic Carbidopa/Levodopa (Sinemet *Cr* 25/100 -) 1 combo PO TIDCM [facility] Stop: 03/16/17 17:31 Last Admin: 03/16/17 08:43 Dose: 1 combo Carbidopa/Levodopa (Sinemet *Cr* 25/100 -) 1 combo PO TID@0700,1200,1700 [facility] Carvedilol (Coreg -) 12.5 mg PO BID [facility] Last Admin: 03/15/17 21:11 Dose: 12.5 mg Docusate Sodium (Colace -) 200 mg PO DAILY [facility] Last Admin: 03/15/17 20:24 Dose: 200 mg Folic Acid (Folic Acid -) 1 mg PO DAILY [facility] Last Admin: 03/15/17 09:27 Dose: 1 mg Furosemide (Lasix -) 40 mg PO DAILY [facility] Guaifenesin (Robitussin -) 5 ml PO Q6H PRN PRN Reason: COUGH Last Admin: 03/15/17 16:07 Dose: 5 ml Guaifenesin/Codeine Phosphate (Robitussin Ac -) 10 ml PO HS [facility] Last Admin: 03/15/17 21:11 Dose: 10 ml Levofloxacin (Levaquin -) 500 mg PO DAILY@0600 [facility] Last Admin: 03/16/17 05:41 Dose: 500 mg Lisinopril (Prinivil) 2.5 mg PO DAILY [facility] Pantoprazole Sodium (Protonix -) 20 mg PO DAILY [facility] Last Admin: 03/15/17 09:26 Dose: 20 mg Potassium Chloride (K-Dur -) 10 meq PO DAILY [facility] Last Admin: 03/15/17 09:27 Dose: 10 meq Ranolazine (Ranexa -) 500 mg PO BID [facility] Last Admin: 03/15/17 21:11 Dose: 500 mg Senna (Senna -) 2 tab PO HS PRN PRN Reason: CONSTIPATION - Objective Vital Signs: Vital Signs Temperature 97.9 F 03/16/17 06:09 Pulse Rate 72 03/16/17 06:09 Respiratory Rate 20 03/16/17 06:09 Blood Pressure 112/54 03/16/17 06:09 O2 Sat by Pulse Oximetry (%) 98 03/12/17 22:25 Constitutional: Yes: No Distress Eyes: Yes: Conjunctiva Clear Cardiovascular: Yes: Regular Rate and Rhythm Respiratory: Yes: Other (mild scattered expiratory wheezing) Edema: Yes Edema: LLE: 1+, RLE: 2+ Neurological: Yes: Alert, Oriented Labs: CBC, BMP 03/14/17 06:00 03/14/17 06:00 INR, PTT INR 3.18 (0.82-1.09) H 03/14/17 06:00 Problem List - Problems (1) Atrial fibrillation Code(s): I48.91 - UNSPECIFIED ATRIAL FIBRILLATION Qualifiers: Atrial fibrillation type: paroxysmal Qualified Code(s): I48.0 - Paroxysmal atrial fibrillation (2) Supratherapeutic INR Code(s): R79.1 - ABNORMAL COAGULATION PROFILE (3) Falls frequently Code(s): R29.6 - REPEATED FALLS (4) Ischemic cardiomyopathy Code(s): I25.5 - ISCHEMIC CARDIOMYOPATHY (5) Paroxysmal a-fib Code(s): I48.0 - PAROXYSMAL ATRIAL FIBRILLATION (6) Prostate CA Code(s): C61 - MALIGNANT NEOPLASM OF PROSTATE (7) Leg weakness, bilateral Code(s): R29.898 - OTH SYMPTOMS AND SIGNS INVOLVING THE MUSCULOSKELETAL SYSTEM Assessment/Plan IMP: Ischemic CM s/p ICD and MV repair several years ago, chronic systolic CHF compensated. PAF on coumadin Frequent falls in setting of progressive b/l LE weakness Prostate CA REC: 1. Hold Coumadin and recommend d/c for future: risks >> benefits. 2. Can resume Ranexa, Coreg, Lipitor and ASA 81mg daily. -Seems to be mildly volume overloaded with orthopnea -Will restart his low dose Lisinopril and increase Lasix to 40mg daily for few days 3. Neurology evaluation for progressive LE weakness in progress. F/u CT LS spine 4. Edema: asymmetric, likely due to mild volume overload; will check duplex to r /o DVT
[2017-03-16] MEDS: DOCUSATE SODIUM 100 MG CAPSULE (FP) PO SCH (09:42)
[2017-03-16] MEDS: CARVEDILOL 12.5 MG TABLET (FP) PO SCH ×2 (09:42→21:03)
[2017-03-16] MEDS: BACITRACIN 15 GM TUBE TOPICAL OINTMENT TP SCH (09:42)
[2017-03-16] MEDS: ASPIRIN 81 MG CHEWABLE TABLETS PO SCH (09:42)
[2017-03-16] MEDS: PANTOPRAZOLE 20 MG TABLET (FP) PO SCH (09:43)
[2017-03-16] MEDS: POTASSIUM CHLORIDE TABS 10 MEQ TABLET.ER (FP) PO SCH (09:43)
[2017-03-16] MEDS: guaiFENesin 200 MG/10 ML 10 ML UNIT-DOSE CUPS PO PRN (09:43)
[2017-03-16] MEDS: FOLIC ACID 1 MG TABLET (FP) PO SCH (09:43)
[2017-03-16] MEDS: RANOLAZINE E.R. 500 MG TABLET (FP) PO SCH ×2 (09:43→21:04)
[2017-03-16] MEDS: FUROSEMIDE 40 MG TABLET (FP) PO SCH (09:43)
[2017-03-16] MEDS: LISINOPRIL 5 MG TABLET (FP) PO SCH (09:43)
[2017-03-16] MEDS ORDERED: SODIUM PHOSPHATE/NA BIPHOS 133 ML ENEMA RC ONE (13:30)
[2017-03-16] MEDS ORDERED: SENNOSIDES 8.6MG TABLET (FP) PO ONE (13:30)
[2017-03-16] MEDS: ATORVASTATIN CA 10 MG TABLET (FP) PO SCH (21:03)
[2017-03-16] MEDS: guaiFENesin/CODEINE 10 ML UNIT-DOSE CUPS PO SCH (21:04)
[2017-03-17] MEDS: LEVOFLOXACIN 500 MG TABLET (FP) PO SCH (06:24)
[2017-03-17 07:53] LABS: ANION GAP 5 (8-16); CALCIUM 8.3 mg/dL (8.5-10.1); CO2 32 mmol/L (21-32); CREATININE 0.9 mg/dL (0.7-1.3); GLUCOSE,RANDOM 78 mg/dL (74-106)
[2017-03-17 08:30] LABS: INR 2.03 (0.82-1.09); PROTHROMBIN TIME (PATIENT) 22.6 SEC (9.98-11.88)
[2017-03-17] MEDS: RANOLAZINE E.R. 500 MG TABLET (FP) PO SCH ×2 (09:40→22:28)
[2017-03-17] MEDS: FOLIC ACID 1 MG TABLET (FP) PO SCH (09:41)
[2017-03-17] MEDS: POTASSIUM CHLORIDE TABS 10 MEQ TABLET.ER (FP) PO SCH (09:41)
[2017-03-17] MEDS: PANTOPRAZOLE 20 MG TABLET (FP) PO SCH (09:41)
[2017-03-17] MEDS: BACITRACIN 15 GM TUBE TOPICAL OINTMENT TP SCH (09:42)
[2017-03-17] MEDS: DOCUSATE SODIUM 100 MG CAPSULE (FP) PO SCH (09:43)
[2017-03-17] MEDS: ASPIRIN 81 MG CHEWABLE TABLETS PO SCH (09:44)
[2017-03-17] MEDS: FUROSEMIDE 40 MG TABLET (FP) PO SCH (09:44)
[2017-03-17] MEDS: LISINOPRIL 5 MG TABLET (FP) PO SCH (09:44)
[2017-03-17] MEDS: CARVEDILOL 12.5 MG TABLET (FP) PO SCH ×2 (09:44→22:28)
[2017-03-17] MEDS: guaiFENesin 200 MG/10 ML 10 ML UNIT-DOSE CUPS PO PRN (09:48)
[2017-03-17] MEDS: ALBUTEROL SO4 2.5/IPRATROPIUM 0.5 INH SOL 3 ML VIAL.NEB. NEB PRN (10:00)
[2017-03-17] MEDS ORDERED: PT OWN MED DRAWER 7, Y5N ONE (11:50)
--- NOTE | 2017-03-17 15:20 | PN ---
Progress Note, Physician Chief Complaint: Pt A&Ox3; OOB in chair; no chest pain; + dsypnea on mild exertion. History of Present Illness: HPI: The patient is an 82 yo white man with a past medical history significant for cardiac stents, mitral valve repair, ICD, AFIB just out of rehab for subdural hematoma from previous fall who fell twice. The patient states the first time he fell was on the sofa and the second he hit the floor. As per the patients family, the patient has been taking levaquin for a recent cold. Afib on coumadin that was just resumed following a subdural from a previous fall. Spoke with Dr. Wilson who asked us to admit., PCP: Kirt Dow Cardiology: Dr. Wilson - Current Medication List Current Medications: Active Medications Albuterol/Ipratropium (Duoneb -) 1 amp NEB Q6H PRN PRN Reason: SHORTNESS OF BREATH Last Admin: 03/17/17 10:00 Dose: 1 amp Aspirin (Asa -) 81 mg PO DAILY [facility] Last Admin: 03/17/17 09:44 Dose: 81 mg Atorvastatin Calcium (Lipitor -) 10 mg PO HS [facility] Last Admin: 03/16/17 21:03 Dose: 10 mg Bacitracin (Bacitracin -) 1 applic TP DAILY [facility] Last Admin: 03/17/17 09:42 Dose: 1 applic Carbidopa/Levodopa (Sinemet *Cr* 25/100 -) 1 combo PO TID@0700,1200,1700 [facility] Last Admin: 03/17/17 12:08 Dose: 1 combo Carvedilol (Coreg -) 12.5 mg PO BID [place] Last Admin: 03/17/17 09:44 Dose: Not Given Docusate Sodium (Colace -) 200 mg PO DAILY [facility] Last Admin: 03/17/17 09:43 Dose: 200 mg Folic Acid (Folic Acid -) 1 mg PO DAILY [facility] Last Admin: 03/17/17 09:41 Dose: 1 mg Furosemide (Lasix -) 40 mg PO DAILY [facility] Last Admin: 03/17/17 09:44 Dose: Not Given Guaifenesin (Robitussin -) 5 ml PO Q6H PRN PRN Reason: COUGH Last Admin: 03/17/17 09:48 Dose: 5 ml Guaifenesin/Codeine Phosphate (Robitussin Ac -) 10 ml PO HS [facility] Last Admin: 03/16/17 21:04 Dose: 10 ml Levofloxacin (Levaquin -) 500 mg PO DAILY@0600 [facility] Last Admin: 03/17/17 06:24 Dose: 500 mg Lisinopril (Prinivil) 2.5 mg PO DAILY [facility] Last Admin: 03/17/17 09:44 Dose: Not Given Pantoprazole Sodium (Protonix -) 20 mg PO DAILY [facility] Last Admin: 03/17/17 09:41 Dose: 20 mg Potassium Chloride (K-Dur -) 10 meq PO DAILY [facility] Last Admin: 03/17/17 09:41 Dose: 10 meq Ranolazine (Ranexa -) 500 mg PO BID [facility] Last Admin: 03/17/17 09:40 Dose: 500 mg Senna (Senna -) 2 tab PO HS PRN PRN Reason: CONSTIPATION - Objective Vital Signs: Vital Signs Temperature 98.0 F 03/17/17 14:33 Pulse Rate 70 03/17/17 14:33 Respiratory Rate 20 03/17/17 14:33 Blood Pressure 102/56 03/17/17 14:33 O2 Sat by Pulse Oximetry (%) 100 03/16/17 21:00 Constitutional: Yes: Anxious Eyes: Yes: WNL HENT: Yes: WNL Neck: Yes: WNL Cardiovascular: Yes: Regular Rate and Rhythm, S1, S2 (split) Respiratory: Yes: Regular Gastrointestinal: Yes: Soft ...Rectal Exam: Yes: Deferred Genitourinary: No: Anuria Breast(s): Yes: WNL Musculoskeletal: Yes: Muscle Weakness Extremities: Yes: Cool Edema: No Peripheral Pulses WNL: No Integumentary: Yes: WNL, Other (ICD site (Left upper chest) nontender) Labs: CBC, BMP 03/14/17 06:00 03/17/17 06:00 INR, PTT INR 2.03 (0.82-1.09) H D 03/17/17 06:00 Problem List - Problems (1) Falls frequently Code(s): R29.6 - REPEATED FALLS (2) Ischemic cardiomyopathy Code(s): I25.5 - ISCHEMIC CARDIOMYOPATHY (3) Leg weakness, bilateral Code(s): R29.898 - OTH SYMPTOMS AND SIGNS INVOLVING THE MUSCULOSKELETAL SYSTEM (4) Paroxysmal a-fib Assessment/Plan: INR therapeutic today. On carvedilol for HR control. Code(s): I48.0 - PAROXYSMAL ATRIAL FIBRILLATION (5) Prostate CA Code(s): C61 - MALIGNANT NEOPLASM OF PROSTATE (6) Systolic CHF Assessment/Plan: Low-normal LVEF, with severe MR and mod-severe AR, mild TR. s/p MV repair several years ago. S/p ICD for ?VF arrest. As discussed with Dr. Hair today,pt still dyspneic with mild exertion. Will reevaluate tomorrow for possiblity of decreasing furosemide. Code(s): I50.20 - UNSPECIFIED SYSTOLIC (CONGESTIVE) HEART FAILURE
--- NOTE | 2017-03-17 16:50 | PN ---
Progress Note, Physician - Current Medication List Current Medications: Active Medications Albuterol/Ipratropium (Duoneb -) 1 amp NEB Q6H PRN PRN Reason: SHORTNESS OF BREATH Last Admin: 03/17/17 10:00 Dose: 1 amp Aspirin (Asa -) 81 mg PO DAILY [facility] Last Admin: 03/17/17 09:44 Dose: 81 mg Atorvastatin Calcium (Lipitor -) 10 mg PO HS [facility] Last Admin: 03/16/17 21:03 Dose: 10 mg Bacitracin (Bacitracin -) 1 applic TP DAILY [facility] Last Admin: 03/17/17 09:42 Dose: 1 applic Carbidopa/Levodopa (Sinemet *Cr* 25/100 -) 1 combo PO TID@0700,1200,1700 [facility] Last Admin: 03/17/17 12:08 Dose: 1 combo Carvedilol (Coreg -) 12.5 mg PO BID [facility] Last Admin: 03/17/17 09:44 Dose: Not Given Docusate Sodium (Colace -) 200 mg PO DAILY [facility] Last Admin: 03/17/17 09:43 Dose: 200 mg Folic Acid (Folic Acid -) 1 mg PO DAILY [facility] Last Admin: 03/17/17 09:41 Dose: 1 mg Furosemide (Lasix -) 40 mg PO DAILY [facility] Last Admin: 03/17/17 09:44 Dose: Not Given Guaifenesin (Robitussin -) 5 ml PO Q6H PRN PRN Reason: COUGH Last Admin: 03/17/17 09:48 Dose: 5 ml Guaifenesin/Codeine Phosphate (Robitussin Ac -) 10 ml PO [facility] Last Admin: 03/16/17 21:04 Dose: 10 ml Levofloxacin (Levaquin -) 500 mg PO DAILY@0600 [facility] Last Admin: 03/17/17 06:24 Dose: 500 mg Lisinopril (Prinivil) 2.5 mg PO DAILY [facility] Last Admin: 03/17/17 09:44 Dose: Not Given Pantoprazole Sodium (Protonix -) 20 mg PO DAILY [facility] Last Admin: 03/17/17 09:41 Dose: 20 mg Potassium Chloride (K-Dur -) 10 meq PO DAILY [facility] Last Admin: 03/17/17 09:41 Dose: 10 meq Ranolazine (Ranexa -) 500 mg PO BID [facility] Last Admin: 03/17/17 09:40 Dose: 500 mg Senna (Senna -) 2 tab PO HS PRN PRN Reason: CONSTIPATION - Objective Vital Signs: Vital Signs Temperature 98.0 F 03/17/17 14:33 Pulse Rate 70 03/17/17 14:33 Respiratory Rate 20 03/17/17 14:33 Blood Pressure 102/56 03/17/17 14:33 O2 Sat by Pulse Oximetry (%) 100 03/16/17 21:00 Labs: CBC, BMP 03/14/17 06:00 03/17/17 06:00 INR, PTT INR 2.03 (0.82-1.09) H D 03/17/17 06:00
[2017-03-17] MEDS ORDERED: BISACODYL 10 MG SUPP.RECT RC ONE (19:45)
[2017-03-17] MEDS: ATORVASTATIN CA 10 MG TABLET (FP) PO SCH (22:28)
[2017-03-17] MEDS: guaiFENesin/CODEINE 10 ML UNIT-DOSE CUPS PO SCH (22:28)
[2017-03-18] MEDS: ALBUTEROL SO4 2.5/IPRATROPIUM 0.5 INH SOL 3 ML VIAL.NEB. NEB PRN ×3 (00:05→19:08)
[2017-03-18] MEDS ORDERED: PT OWN MED DRAWER 7, Y5N ONE ×3 (06:00→17:08)
[2017-03-18] MEDS: LEVOFLOXACIN 500 MG TABLET (FP) PO SCH (06:45)
[2017-03-18] MEDS: CARVEDILOL 12.5 MG TABLET (FP) PO SCH ×2 (10:30→21:28)
[2017-03-18] MEDS: POTASSIUM CHLORIDE TABS 10 MEQ TABLET.ER (FP) PO SCH (10:30)
[2017-03-18] MEDS: PANTOPRAZOLE 20 MG TABLET (FP) PO SCH (10:31)
[2017-03-18] MEDS: BACITRACIN 15 GM TUBE TOPICAL OINTMENT TP SCH (10:31)
[2017-03-18] MEDS: FOLIC ACID 1 MG TABLET (FP) PO SCH (10:31)
[2017-03-18] MEDS: DOCUSATE SODIUM 100 MG CAPSULE (FP) PO SCH (10:31)
[2017-03-18] MEDS: RANOLAZINE E.R. 500 MG TABLET (FP) PO SCH ×2 (10:31→21:30)
[2017-03-18] MEDS: ASPIRIN 81 MG CHEWABLE TABLETS PO SCH (10:31)
[2017-03-18] MEDS: FUROSEMIDE 40 MG TABLET (FP) PO SCH (10:31)
[2017-03-18] MEDS: LISINOPRIL 5 MG TABLET (FP) PO SCH (12:52)
[2017-03-18] MEDS: guaiFENesin 200 MG/10 ML 10 ML UNIT-DOSE CUPS PO PRN (13:26)
--- NOTE | 2017-03-18 19:21 | PN ---
Progress Note, Physician - Current Medication List Current Medications: Active Medications Albuterol/Ipratropium (Duoneb -) 1 amp NEB Q6H PRN PRN Reason: SHORTNESS OF BREATH Last Admin: 03/18/17 19:08 Dose: 1 amp Aspirin (Asa -) 81 mg PO DAILY [facility] Last Admin: 03/18/17 10:31 Dose: 81 mg Atorvastatin Calcium (Lipitor -) 10 mg PO HS [facility] Last Admin: 03/17/17 22:28 Dose: 10 mg Bacitracin (Bacitracin -) 1 applic TP DAILY [facility] Last Admin: 03/18/17 10:31 Dose: 1 applic Carbidopa/Levodopa (Sinemet *Cr* 25/100 -) 1 combo PO TID@0700,1200,1700 [facility] Last Admin: 03/18/17 18:08 Dose: 1 combo Carvedilol (Coreg -) 12.5 mg PO BID [facility] Last Admin: 03/18/17 10:30 Dose: 12.5 mg Docusate Sodium (Colace -) 200 mg PO DAILY [facility] Last Admin: 03/18/17 10:31 Dose: 200 mg Folic Acid (Folic Acid -) 1 mg PO DAILY [facility] Last Admin: 03/18/17 10:31 Dose: 1 mg Furosemide (Lasix -) 40 mg PO DAILY [facility] Last Admin: 03/18/17 10:31 Dose: 40 mg Guaifenesin (Robitussin -) 5 ml PO Q6H PRN PRN Reason: COUGH Last Admin: 03/18/17 13:26 Dose: 5 ml Guaifenesin/Codeine Phosphate (Robitussin Ac -) 10 ml PO HS [facility] Last Admin: 03/17/17 22:28 Dose: 10 ml Levofloxacin (Levaquin -) 500 mg PO DAILY@0600 [facility] Last Admin: 03/18/17 06:45 Dose: 500 mg Lisinopril (Prinivil) 2.5 mg PO DAILY [facility] Last Admin: 03/18/17 12:52 Dose: Not Given Pantoprazole Sodium (Protonix -) 20 mg PO DAILY [facility] Last Admin: 03/18/17 10:31 Dose: 20 mg Potassium Chloride (K-Dur -) 10 meq PO DAILY [facility] Last Admin: 03/18/17 10:30 Dose: 10 meq Ranolazine (Ranexa -) 500 mg PO BID [facility] Last Admin: 03/18/17 10:31 Dose: 500 mg Senna (Senna -) 2 tab PO HS PRN PRN Reason: CONSTIPATION - Objective Vital Signs: Vital Signs Temperature 98 F 03/18/17 15:05 Pulse Rate 70 03/18/17 15:05 Respiratory Rate 18 03/18/17 15:05 Blood Pressure 122/65 03/18/17 15:05 O2 Sat by Pulse Oximetry (%) 100 03/18/17 09:00 Constitutional: Yes: No Distress HENT: Yes: Atraumatic Neck: Yes: Supple Cardiovascular: Yes: Regular Rate and Rhythm Respiratory: Yes: CTA Bilaterally Gastrointestinal: Yes: Normal Bowel Sounds Extremities: Yes: WNL Labs: CBC, BMP 03/14/17 06:00 03/17/17 06:00 INR, PTT INR 2.03 (0.82-1.09) H D 03/17/17 06:00 Problem List - Problems (1) Atrial fibrillation Assessment/Plan: ON MEDS STABLE Code(s): I48.91 - UNSPECIFIED ATRIAL FIBRILLATION Qualifiers: Atrial fibrillation type: paroxysmal Qualified Code(s): I48.0 - Paroxysmal atrial fibrillation (2) Leg weakness, bilateral Assessment/Plan: PHYSIACAL THERAPY EVAL Code(s): R29.898 - OTH SYMPTOMS AND SIGNS INVOLVING THE MUSCULOSKELETAL SYSTEM (3) Falls frequently Code(s): R29.6 - REPEATED FALLS Assessment/Plan COVERING DR GREGORIO
[2017-03-18] MEDS: guaiFENesin/CODEINE 10 ML UNIT-DOSE CUPS PO SCH (21:30)
[2017-03-18] MEDS: ATORVASTATIN CA 10 MG TABLET (FP) PO SCH (21:30)
[2017-03-19] MEDS ORDERED: PT OWN MED DRAWER 7, Y5N ONE ×2 (06:23→12:52)
[2017-03-19] MEDS: LEVOFLOXACIN 500 MG TABLET (FP) PO SCH (06:28)
[2017-03-19 08:09] LABS: INR 1.59 (0.82-1.09); PROTHROMBIN TIME (PATIENT) 17.6 SEC (9.98-11.88)
[2017-03-19] MEDS: DOCUSATE SODIUM 100 MG CAPSULE (FP) PO SCH (09:42)
[2017-03-19] MEDS: LISINOPRIL 5 MG TABLET (FP) PO SCH (09:43)
[2017-03-19] MEDS: FOLIC ACID 1 MG TABLET (FP) PO SCH (09:47)
[2017-03-19] MEDS: POTASSIUM CHLORIDE TABS 10 MEQ TABLET.ER (FP) PO SCH (09:47)
[2017-03-19] MEDS: PANTOPRAZOLE 20 MG TABLET (FP) PO SCH (09:47)
[2017-03-19] MEDS: CARVEDILOL 12.5 MG TABLET (FP) PO SCH (09:48)
[2017-03-19] MEDS: ASPIRIN 81 MG CHEWABLE TABLETS PO SCH (09:48)
[2017-03-19] MEDS: FUROSEMIDE 40 MG TABLET (FP) PO SCH (09:48)
[2017-03-19] MEDS: RANOLAZINE E.R. 500 MG TABLET (FP) PO SCH (09:48)
[2017-03-19] MEDS: BACITRACIN 15 GM TUBE TOPICAL OINTMENT TP SCH (09:48)
[2017-03-19] MEDS: guaiFENesin 200 MG/10 ML 10 ML UNIT-DOSE CUPS PO PRN (11:03)
--- NOTE | 2017-03-19 11:48 | PN ---
Progress Note, Physician History of Present Illness: seen and examined today in nad. no overnight events. no new complaints. - Current Medication List Current Medications: Active Medications Aspirin (Asa -) 81 mg PO DAILY [facility] Last Admin: 03/19/17 09:48 Dose: 81 mg Atorvastatin Calcium (Lipitor -) 10 mg PO HS [facility] Last Admin: 03/18/17 21:30 Dose: 10 mg Bacitracin (Bacitracin -) 1 applic TP DAILY [facility] Last Admin: 03/19/17 09:48 Dose: 1 applic Carbidopa/Levodopa (Sinemet *Cr* 25/100 -) 1 combo PO TID@0700,1200,1700 [facility] Last Admin: 03/19/17 06:28 Dose: 1 combo Carvedilol (Coreg -) 12.5 mg PO BID [facility] Last Admin: 03/19/17 09:48 Dose: 12.5 mg Docusate Sodium (Colace -) 200 mg PO DAILY [facility] Last Admin: 03/19/17 09:42 Dose: 200 mg Folic Acid (Folic Acid -) 1 mg PO DAILY [facility] Last Admin: 03/19/17 09:47 Dose: 1 mg Furosemide (Lasix -) 40 mg PO DAILY [facility] Last Admin: 03/19/17 09:48 Dose: 40 mg Guaifenesin (Robitussin -) 5 ml PO Q6H PRN PRN Reason: COUGH Last Admin: 03/19/17 11:03 Dose: 5 ml Guaifenesin/Codeine Phosphate (Robitussin Ac -) 10 ml PO HS [facility] Last Admin: 03/18/17 21:30 Dose: 10 ml Levofloxacin (Levaquin -) 500 mg PO DAILY@0600 [facility] Last Admin: 03/19/17 06:28 Dose: 500 mg Lisinopril (Prinivil) 2.5 mg PO DAILY [facility] Last Admin: 03/19/17 09:43 Dose: 2.5 mg Pantoprazole Sodium (Protonix -) 20 mg PO DAILY [facility] Last Admin: 03/19/17 09:47 Dose: 20 mg Potassium Chloride (K-Dur -) 10 meq PO DAILY [facility] Last Admin: 03/19/17 09:47 Dose: 10 meq Ranolazine (Ranexa -) 500 mg PO BID [facility] Last Admin: 03/19/17 09:48 Dose: 500 mg Senna (Senna -) 2 tab PO HS PRN PRN Reason: CONSTIPATION Last Admin: 03/18/17 21:35 Dose: 2 tab - Objective Vital Signs: Vital Signs Temperature 97.9 F 03/19/17 06:00 Pulse Rate 70 03/19/17 06:00 Respiratory Rate 18 03/19/17 06:00 Blood Pressure 116/57 03/19/17 06:00 O2 Sat by Pulse Oximetry (%) 100 03/18/17 09:00 Constitutional: Yes: Well Nourished, No Distress, Calm Eyes: Yes: Conjunctiva Clear, EOM Intact, PERRL HENT: Yes: Atraumatic, Normocephalic Neck: Yes: Supple, Trachea Midline Cardiovascular: Yes: Pulse Irregular, Murmur, S1, S2. No: Regular Rate and Rhythm, Bradycardia, Tachycardia, Bruit, JVD, Gallop, Rub, S3, S4, Varicosities Respiratory: Yes: Regular, CTA Bilaterally. No: Rales, Rhonchi, Wheezes Gastrointestinal: Yes: Normal Bowel Sounds, Soft. No: Distention, Tenderness Musculoskeletal: Yes: Muscle Weakness Extremities: Yes: WNL Edema: LLE: Trace, RLE: Trace Peripheral Pulses WNL: Yes Peripheral Pulses: Left Doralis Pedis: 2+, Right Dorsalis Pedis: 2+ Neurological: Yes: Alert, Oriented Psychiatric: Yes: Alert, Oriented Labs: CBC, BMP 03/14/17 06:00 03/17/17 06:00 INR, PTT INR 1.59 (0.82-1.09) H 03/19/17 07:00 - ....Imaging Chest X-ray: Report Reviewed, Image Reviewed EKG: Report Reviewed, Image Reviewed Other: Report Reviewed, Image Reviewed Assessment/Plan IMP: Ischemic CM s/p ICD and MV repair several years ago, chronic systolic CHF compensated. PAF on coumadin Frequent falls in setting of progressive b/l LE weakness Prostate CA REC: Warfarin stopped due to frequent falls as risk > benefit Cont Ranexa, Coreg, Lipitor and ASA 81mg daily. Cont Lisinopril Cont Lasix 40mg daily for a few days Pt states LE edema improves with leg elevation and lungs are clear, would not aggressively diurese, likely component of chronic venous insufficiency Doppler negative for DVT Neurology evaluated-CT spine done for progressive LE weakness pt planned for discharge to rehab
[2017-03-19 14:23] VITALS: BP 95/52; PULSE 95; TEMP 98
== END 2017-03-19 16:00 | DRG 914 ==
LOC: JER 22:23 → JERBED 03-13 02:04 → UNDOADMIN 03-13 02:20 → JERBED 03-13 02:20 → J8W 03-13 05:48
PROVIDERS: ADMIT Internal Medicine; ATTEND Internal Medicine
DX: S09.90XA Unspecified injury of head, initial encounter (principal); I50.22 Chronic systolic (congestive) heart failure; M50.00 Cervical disc disorder with myelopathy, unspecified cervical region; M54.12 Radiculopathy, cervical region; I25.10 Atherosclerotic heart disease of native coronary artery without angina pectoris; Z98.61 Coronary angioplasty status; I25.5 Ischemic cardiomyopathy; I48.0 Paroxysmal atrial fibrillation; C61 Malignant neoplasm of prostate; R79.1 Abnormal coagulation profile; R29.6 Repeated falls; R29.898 Other symptoms and signs involving the musculoskeletal system; I11.0 Hypertensive heart disease with heart failure; W19.XXXA Unspecified fall, initial encounter; Y93.9 Activity, unspecified; Y92.098 Other place in other non-institutional residence as the place of occurrence of the external cause; Y99.9 Unspecified external cause status
CPT/HCPCS: 36415; 70450-TC; 71010-TC; 72125-TC; 80048; 80053; 81003; 82550; 82553; 82607; 84153; 84484; 85025; 85610; 86850; 86900; 86901; 93005; 93010; 93970-TC; 94640; 97116-GP; 97161-GP; 99282-25

== ENCOUNTER 2017-07-30 01:34 | Emergency (ER) | payer OTHER ==
[2017-07-30] MEDS ORDERED: ACETAMINOPHEN 500 MG TABLET (FP) PO ONE (01:41)
--- NOTE | 2017-07-30 01:43 | PDOC ---
History of Present Illness - General Chief Complaint: Pain, Acute Stated Complaint: LEGS GAVE OUT, FELL C/O NECK PAIN - History of Present Illness Initial Comments: 07/30/17 03:38 82 y male presents s/p fall backwards. Lost balance. Impacted head, tailbone and neck. C/o localized pain Earlier this week had another fall in which he impacted the front of his head. Lives at assisted living fhx: non-contributory ros: reviewed and otherwise negative o/e NAD A+Ox3 l frontal brusing c/w previous fall no occipital bruising neck without johnny tenderness cta no rib cage tenderness abd nt/nd no pelvis tenderness L hand--healing wound of unclear chronicity (bandage suggests it has been open since previous fall) L knee-abrasion without johnny tenderness no extremity johnny tenderness a/p fall image head, neck analgesia 07/30/17 04:15 Past History - Past Medical History Allergies/Adverse Reactions: Allergies Allergy/AdvReac Type Severity Reaction Status Date / Time Penicillins Allergy Intermediate Rash Verified 07/30/17 01:36 Home Medications: Ambulatory Orders Aspirin [ASA -] 81 mg PO DAILY 07/30/17 Atorvastatin Ca [Lipitor] 10 mg PO HS 07/30/17 Carvedilol 3.125 mg PO DAILY 07/30/17 Clopidogrel Bisulfate [Plavix -] 75 mg PO DAILY 07/30/17 Docusate Sodium 100 mg PO DAILY 07/30/17 Folic Acid 1 mg PO DAILY 07/30/17 Ipratropium/Albuterol Sulfate [Combivent Respimat Inhal [place]] 4 gm IH PRN 07/30 Ranolazine [Ranexa] 500 mg PO BID 07/30/17 Sennosides [Senna] 8.6 mg PO HS 07/30/17 Anemia: No Asthma: No Cancer: No Cardiac Disorders: Yes (DEFIB/PPM,10/26,2 STENTS AFTER [place]--,09/06/08) CVA: No COPD: No CHF: Yes Dementia: No Diabetes: No GI Disorders: No Disorders: No HTN: Yes Hypercholesterolemia: Yes Liver Disease: No Seizures: No Thyroid Disease: No - Surgical History Abdominal Surgery: No Appendectomy: No Cardiac Surgery: Yes (STENTS X2,PACEMAKER/DEFIB) Cholecystectomy: No Lung Surgery: No Neurologic Surgery: No Orthopedic Surgery: No - Immunization History Immunization Up to Date: Yes - Suicide/Smoking/Psychosocial Hx Smoking History: Never smoked Have you smoked in the past 12 months: No Hx Alcohol Use: No Drug/Substance Use Hx: No Substance Use Type: None *DC/Admit/Observation/Transfer Diagnosis at time of Disposition: Fall from standing Qualifiers: Encounter type: initial encounter Qualified Code(s): W19.XXXA - Unspecified fall, initial encounter - Discharge Dispostion Disposition: HOME Condition at time of disposition: Stable - Referrals Referrals: Kirt Dow MD [Primary Care Provider] - - Patient Instructions Printed Discharge Instructions: DI for Neck Sprain Additional Instructions: For pain: Acetaminophen 1000mg every 8 hours, only as needed Wound care L hand: Clean with soap and water. Maintain sterile dressing until closed - Post Discharge Activity
[2017-07-30 02:05] VITALS: BP 137/76; PULSE 74; TEMP 97.4; BMI 19.3
== END 2017-07-30 04:31 | disposition home or self-care (01) ==
LOC: FER 01:34
DX: S09.90XA Unspecified injury of head, initial encounter (principal); W18.39XA Other fall on same level, initial encounter; Y93.89 Activity, other specified; Y92.099 Unspecified place in other non-institutional residence as the place of occurrence of the external cause; Z95.5 Presence of coronary angioplasty implant and graft; I25.2 Old myocardial infarction; I50.9 Heart failure, unspecified; I10 Essential (primary) hypertension; E78.00 Pure hypercholesterolemia, unspecified
CPT/HCPCS: 70450-TC; 72125-TC; 99281-25